=== PATIENT | female | born 1970 | race Two or more races ===

== ENCOUNTER 2017-03-27 08:50 | Outpatient (CLI) | payer OTHER ==
[~2017-03-27] VITALS: Ht 162.6 cm; Wt 63.0 kg
[~2017-03-27 08:50] MED LIST: CIPRO500 MG PO; FLAGYL500MG PO
== END 2017-03-27 09:05 | disposition home or self-care (01) ==
LOC: OFIC 805 08:50
DX: J02.8 Acute pharyngitis due to other specified organisms (principal); J04.0 Acute laryngitis; K21.9 Gastro-esophageal reflux disease without esophagitis

== ENCOUNTER 2020-06-08 14:44 | Outpatient (CLI) | payer OTHER | END 2020-06-08 14:54 | disposition home or self-care (01) | LOC: LAB 14:44 | PROVIDERS: ATTEND Internal Medicine Pulmonary Disease | DX: U07.1 COVID-19 (principal); R05 Cough; R06.02 Shortness of breath; R50.9 Fever, unspecified; Z20.828 Contact with and (suspected) exposure to other viral communicable diseases ==

== ENCOUNTER 2021-05-20 09:05 | Outpatient (CLI) | payer OTHER | END 2021-05-20 09:18 | disposition home or self-care (01) | LOC: SONOGRAMA 09:05 | PROVIDERS: ATTEND Obstetrics & Gynecology Gynecology | DX: N84.0 Polyp of corpus uteri (principal) ==